=== PATIENT | male | born 1960 | race Caucasian/White ===

== ENCOUNTER 2020-09-10 05:48 | Emergency (ER) | payer OTHER ==
[~2020-09-10 05:48] MED LIST: BISOPROLOL FUMAR5 MG PO; CARAFATE1 GM PO; CENTRUM SILVER1 EAC5 PO; CHANTIX1 EACH PO; LIPITOR20 MG PO; LOVAZA1 GM PO; PREVACID30 MG PO; ZIAC 10-6.25 M1 EACH PO
[2020-09-10 06:29] LABS: EOSINOPHIL 2.2 % (0-5); HCT 46.3 % (42.0-52.0); HGB 16.3 g/dl (13.2-18.0); LYMPHOCYTE 28.3 % (15-48); MCH 34.7 pg (25.0-31.0); MCHC 35.2 g/dL (32.0-36.0); MCV 98.5 fL (78.0-100.0); MONOCYTE 6.8 % (0-12); NEUTROPHIL 61.4 % (41-80); NRBC 0; PLT 176 K/uL (150-400); RDW 12.5 % (11.5-14.0); WBC 7.3 K/uL (4.0-10.5)
[2020-09-10 06:30] LABS: BILIRUBIN NEGATIVE (NEGATIVE); BLOOD TRACE-INTACT Ery/uL (NEGATIVE); CLARITY CLEAR (CLEAR); COLOR YELLOW (YELLOW); GLUCOSE (U) NORMAL (NORMAL); LEUKOCYTES NEGATIVE Leu/uL (NEGATIVE); NITRITE NEGATIVE (NEGATIVE); PROTEIN NEGATIVE (NEGATIVE); SPECIFIC GRAVITY >=1.030 (1.001-1.030); UROBILINOGEN 0.2 mg/dL (0.2-1.0); pH 5.5 (5.0-9.0)
[2020-09-10 06:38] LABS: BACTERIA TRACE
[2020-09-10 06:47] LABS: BILIRUBIN - TOTAL 0.8 mg/dL (0.2-1.0); BUN/CREAT RATIO (CALC) 29.2 RATIO; CREATININE 0.96 mg/dL (0.67-1.17); MAGNESIUM 1.8 mg/dL (1.8-2.4); POTASSIUM 4.1 mmol/L (3.5-5.1)
[2020-09-10] MEDS ORDERED: PERCOCET 7.5/321 TAB PO (06:59)
[2020-09-10] MEDS ORDERED: FLOMAX0.4 MG PO (06:59)
[2020-09-10] MEDS ORDERED: NAPROXEN500 MG PO (06:59)
[2020-09-10] MEDS ORDERED: ONDANSETRON ODT4 MG PO (06:59)
== END 2020-09-10 07:55 | disposition home or self-care (01) ==
LOC: FER 05:48
PROVIDERS: Emergency Medicine
DX: N13.6 Pyonephrosis (principal); I10 Essential (primary) hypertension; F17.210 Nicotine dependence, cigarettes, uncomplicated
CPT/HCPCS: 36415; 80053; 81001; 83690; 83735; 85025; J1170; J1885; J2405; J7030

== ENCOUNTER 2021-01-18 18:25 | Emergency (ER) | payer OTHER ==
[~2021-01-18 18:25] MED LIST changes: +FLOMAX0.4 MG PO; +NAPROXEN500 MG PO; +ONDANSETRON ODT4 MG PO; +PERCOCET 7.5/321 TAB PO
[2021-01-18 18:49] LABS: BASOPHIL 0.8 % (0-2); EOSINOPHIL 0.8 % (0-5); HCT 45.9 % (42.0-52.0); LYMPHOCYTE 24.2 % (15-48); MCH 33.4 pg (25.0-31.0); MCHC 34.9 g/dL (32.0-36.0); MCV 95.8 fL (78.0-100.0); MONOCYTE 6.1 % (0-12); MPV 10.3 fL (6.0-9.5); NEUTROPHIL 67.9 % (41-80); NRBC 0; PLT 182 K/uL (150-400); RBC 4.79 M/uL (4.70-6.00); RDW 12.4 % (11.5-14.0); WBC 9.8 K/uL (4.0-10.5)
[2021-01-18 19:06] LABS: BILIRUBIN - TOTAL 0.7 mg/dL (0.2-1.0); BUN/CREAT RATIO (CALC) 26.6 RATIO; CREATININE 0.79 mg/dL (0.67-1.17); GLOBULIN (CALCULATION) 2.9 g/dL; POTASSIUM 3.9 mmol/L (3.5-5.1); TOTAL PROTEIN 6.9 g/dL (6.4-8.2)
[2021-01-18 19:12] LABS: CKMB 2.9 ng/mL (0.0-3.6)
[2021-01-18] MEDS ORDERED: BISOPROLOL-HCT1 EAC1 PO (21:48)
== END 2021-01-18 21:59 | disposition home or self-care (01) ==
LOC: FER 18:25
PROVIDERS: Emergency Medicine
DX: R07.89 Other chest pain (principal); I10 Essential (primary) hypertension; F17.210 Nicotine dependence, cigarettes, uncomplicated
CPT/HCPCS: 36415; 71046; 80053; 82553; 84484; 85025; 93005